=== PATIENT | female | born 1985 | race African-American/Black ===

== ENCOUNTER 2023-06-02 18:02 | Emergency (ER) | payer OTHER, SELFPAY ==
[2023-06-02] MEDS ORDERED: HYDROcodone/Acetaminophen 5/325 mg Tablet ONE (19:16)
== END 2023-06-02 19:20 | disposition home or self-care (01) ==
LOC: CSHERS 18:02
DX: M25.511 Pain in right shoulder (principal); X50.0XXA Overexertion from strenuous movement or load, initial encounter; Y93.F2 Activity, caregiving, lifting
CPT/HCPCS: 99283